=== PATIENT | male | born 1945 | race Caucasian/White ===

== ENCOUNTER → 2017-03-24 | Outpatient (CLI) | payer OTHER ==
[~2017-03-24] MED LIST: ASPI-515 PO; ASPI-621 PO; ATOR10TA9 PO; CEPH-368 PO; LISI-167 PO; METO50TA82 PO
[2017-03-24 10:00] LABS: ASPARTATE AMINO TRANSFERASE 15 U/L (15-37); BLOOD UREA NITROGEN 15 mg/dL (7-18)
== END | disposition home or self-care (01) ==
LOC: MERGE 03-23 09:30 → STAR 09:02
PROVIDERS: ATTEND Surgery
DX: Z01.810 Encounter for preprocedural cardiovascular examination (principal)
CPT/HCPCS: 36415; 80053; 93005

== ENCOUNTER 2017-04-03 05:44 | Day surgery (SDC) | payer OTHER ==
[~2017-04-03] VITALS: Ht 195.6 cm; Wt 114.0 kg
[2017-04-03] MEDS ORDERED: LACTATED RINGERS 1,000 ML IV SCH (06:14)
[2017-04-03 06:17] VITALS: BP 131/84
[2017-04-03] MEDS ORDERED: BUPIVACAINE/PF 0.25% ONE (07:10)
[2017-04-03] MEDS ORDERED: BUPIVACAINE/PF 0.5% ONE (07:10)
[2017-04-03] MEDS ORDERED: BUPIVACAINE/PF-EPI 0.25% 1:200K ONE (07:13)
[2017-04-03] MEDS ORDERED: KETAMINE 10 MG/ML, 20ML ONE ×2 (07:21→07:30)
[2017-04-03] MEDS ORDERED: FENTANYL PF 250 MCG/5ML ONE (07:21)
[2017-04-03] MEDS ORDERED: PROPOFOL 10 MG/ML, 20ML ONE (07:30)
[2017-04-03] MEDS ORDERED: METOCLOPRAMIDE 5 MG/ML, 2ML ONE (07:30)
[2017-04-03] MEDS ORDERED: ONDANSETRON 2MG/ML, 2ML ONE (07:30)
[2017-04-03] MEDS ORDERED: CEFAZOLIN 1,000 MG ONE (07:30)
[2017-04-03] MEDS ORDERED: DEXAMETHASONE 4 MG/ML, 1ML ONE (07:30)
[2017-04-03] MEDS ORDERED: ROCURONIUM 10 MG/ML ONE (07:30)
[2017-04-03] MEDS ORDERED: hydrALAzine 20 MG/ML, 1ML IV PRN (08:30)
[2017-04-03] MEDS ORDERED: MIDAZOLAM 1 MG/ML, 2ML IV PRN (08:30)
[2017-04-03] MEDS ORDERED: ONDANSETRON 2MG/ML, 2ML IVPush PRN (08:30)
[2017-04-03] MEDS ORDERED: LABETALOL 5MG/ML, 20ML IV PRN (08:30)
[2017-04-03] MEDS ORDERED: HYDROmorphone 1 MG/ML, 1ML IV PRN (08:30)
[2017-04-03] MEDS ORDERED: OXYcodone 5 MG/5 ML ORAL.SOL UDC PO PRN (08:30)
[2017-04-03] MEDS ORDERED: ACETAMINOPHEN 325 MG TABLET ONE (09:18)
[2017-04-03] MEDS ORDERED: ACETAMINOPHEN 650 MG/20.3 ML UDC ONE (09:18)
[2017-04-03] MEDS ORDERED: OXYcodone 5 MG/5 ML ORAL.SOL UDC ONE (09:18)
[2017-04-03] MEDS ORDERED: ACETAMINOPHEN 325 MG TABLET PO PRN (09:30)
[2017-04-03] MEDS: FENTANYL PF 100 MCG/2ML IV PRN ×2 (09:35→09:45)
[2017-04-03] MEDS ORDERED: FENTANYL PF 100 MCG/2ML ONE (09:35)
== END 2017-04-03 12:35 | disposition home or self-care (01) ==
LOC: OUT 05:44 → MERGE 07:30 → OUT 12:35
PROVIDERS: ATTEND Surgery
DX: K40.90 Unilateral inguinal hernia, without obstruction or gangrene, not specified as recurrent (principal); K42.9 Umbilical hernia without obstruction or gangrene; D17.6 Benign lipomatous neoplasm of spermatic cord; Z95.810 Presence of automatic (implantable) cardiac defibrillator; I42.9 Cardiomyopathy, unspecified; I34.0 Nonrheumatic mitral (valve) insufficiency; E78.5 Hyperlipidemia, unspecified; G62.9 Polyneuropathy, unspecified; Z85.71 Personal history of Hodgkin lymphoma; Z82.49 Family history of ischemic heart disease and other diseases of the circulatory system; Z98.890 Other specified postprocedural states
CPT/HCPCS: 49585; 49650; C1727; C1781; J0690; J1100; J2405; J2704; J2765; J3010; J3490; J7120

== ENCOUNTER 2017-06-26 10:45 | Day surgery (SDC) | payer OTHER ==
[~2017-06-26] VITALS: Ht 195.6 cm; Wt 111.4 kg
[~2017-06-26 10:45] MED LIST changes: +PROPOFOL 10 MG/ML, 20ML ONE
[2017-06-26] MEDS ORDERED: SODIUM CHLORIDE 0.9% 1,000 ML IV ONE (11:00)
[2017-06-26 11:06] VITALS: BP 135/75
[2017-06-26] MEDS ORDERED: SULF-169 PO (11:18)
[2017-06-26] MEDS ORDERED: SILD25TA PO (11:18)
[2017-06-26] MEDS ORDERED: MIDAZOLAM 1 MG/ML, 5ML ONE (13:15)
[2017-06-26] MEDS ORDERED: FENTANYL PF 100 MCG/2ML ONE (13:15)
== END 2017-06-26 16:31 | disposition home or self-care (01) ==
LOC: CACL 10:45
PROVIDERS: ATTEND Internal Medicine Cardiovascular Disease
DX: I34.8 Other nonrheumatic mitral valve disorders (principal); I34.0 Nonrheumatic mitral (valve) insufficiency; I36.1 Nonrheumatic tricuspid (valve) insufficiency; I48.91 Unspecified atrial fibrillation; E78.5 Hyperlipidemia, unspecified; Z95.810 Presence of automatic (implantable) cardiac defibrillator
CPT/HCPCS: 93312; 93325; J2704; 93321; J2250; J3010

== ENCOUNTER 2018-02-23 07:13 | Day surgery (SDC) | payer OTHER ==
[2018-02-21 10:26] VITALS: BP 147/90
[2018-02-21 11:00] LABS: BASOPHILS # (AUTO) 0.04 x10^3/uL (0-0.1); BASOPHILS % (AUTO) 1 % (0-1); EOSINOPHILS # (AUTO) 0.38 x10^3/uL (0-0.4); EOSINOPHILS % (AUTO) 5 % (1-7); LYMPHOCYTES # (AUTO) 1.73 x10^3/uL (1-3.4); LYMPHOCYTES % (AUTO) 24 % (22-44); MD NO; MEAN CORPUSCULAR HEMOGLOBIN 32.5 pg (27.5-34.5); MEAN CORPUSCULAR HGB CONC 33.8 g/dL (33.2-36.2); MEAN CORPUSCULAR VOLUME 96.2 fL (81-97); MEAN PLATELET VOLUME 7.8 fL (7.4-10.4); MONOCYTES # (AUTO) 0.61 x10^3/uL (0.2-0.8); MONOCYTES % (AUTO) 9 % (2-9); NEUTROPHILS # (AUTO) 4.42 x10^3/uL (1.8-6.8); NEUTROPHILS % (AUTO) 62 % (42-75); PLATELET COUNT 137 x10^3/uL (130-400); RED BLOOD COUNT 4.69 x10^6/uL (4.38-5.82); RED CELL DISTRIBUTION WIDTH 15.4 % (9.4-14.8)
[2018-02-21 11:06] LABS: ANION GAP 7 mmol/L (5-15); CALCIUM 8.5 mg/dL (8.5-10.1); CHLORIDE 111 mmol/L (98-107)
[2018-02-21 11:07] LABS: CREATININE 0.95 mg/dL (0.7-1.3)
[~2018-02-23] VITALS: Ht 195.6 cm; Wt 111.3 kg
[~2018-02-23 07:13] MED LIST changes: +IBUP-1223 PO; -PROPOFOL 10 MG/ML, 20ML ONE; +SILD100T PO; +SILD25TA PO; +SULF-169 PO; +VARI50KI IM
[2018-02-23] MEDS ORDERED: SODIUM CHLORIDE 0.9% 1,000 ML IV ONE (07:24)
[2018-02-23] MEDS ORDERED: MIDAZOLAM 1 MG/ML, 5ML ONE (08:55)
[2018-02-23] MEDS ORDERED: TICAGRELOR 90 MG TABLET ONE (08:55)
[2018-02-23] MEDS ORDERED: VERAPAMIL 2.5 MG/ML, 2ML ONE (08:55)
[2018-02-23] MEDS ORDERED: FENTANYL PF 100 MCG/2ML ONE (08:55)
[2018-02-23] MEDS ORDERED: HEPARIN 1,000 UNITS/ML, 10ML ONE (08:56)
[2018-02-23] MEDS ORDERED: LIDOCAINE 2%, 2ML ONE (08:56)
[2018-02-23] MEDS ORDERED: BIVALIRUDIN 250 MG ONE (08:56)
[2018-02-23] MEDS ORDERED: SODIUM CHLORIDE 0.9% 1,000 ML IV SCH (10:36)
== END 2018-02-23 12:30 | disposition home or self-care (01) ==
LOC: CACL 07:13
PROVIDERS: ATTEND Internal Medicine Cardiovascular Disease
DX: I25.10 Atherosclerotic heart disease of native coronary artery without angina pectoris (principal); I47.2 Ventricular tachycardia; I34.0 Nonrheumatic mitral (valve) insufficiency; I10 Essential (primary) hypertension
CPT/HCPCS: 36415; 80048; 85025; 93458; 93571; 99156; C1769; C1894; J1644; J2250; J3010; J3490; Q9967; J0583

== ENCOUNTER → 2018-04-05 | Outpatient (CLI) | payer OTHER | END | disposition home or self-care (01) | LOC: STAR 09:26 | PROVIDERS: ATTEND Internal Medicine | DX: Z01.818 Encounter for other preprocedural examination (principal); Z12.11 Encounter for screening for malignant neoplasm of colon; Z12.12 Encounter for screening for malignant neoplasm of rectum | CPT/HCPCS: 93005 ==

== ENCOUNTER 2018-04-23 11:01 | Day surgery (SDC) | payer OTHER ==
[~2018-04-23] VITALS: Ht 193 cm; Wt 108.0 kg
[2018-04-23] MEDS ORDERED: LACTATED RINGERS 1,000 ML IV SCH (11:22)
[2018-04-23 11:56] VITALS: BP 131/92
[2018-04-23] MEDS ORDERED: PROPOFOL 10 MG/ML, 20ML ONE (12:58)
[2018-04-23] MEDS ORDERED: ACETAMINOPHEN 325 MG TABLET PO PRN (14:00)
[2018-04-23] MEDS ORDERED: PROMETHAZINE 25 MG/ML, 1ML IV PRN (14:00)
[2018-04-23] MEDS ORDERED: PROMETHAZINE 12.5 MG SUPP PR PRN (14:00)
[2018-04-23] MEDS ORDERED: FENTANYL PF 100 MCG/2ML IV PRN (14:00)
[2018-04-23] MEDS ORDERED: MORPHINE SULFATE 4 MG/ML, 1ML IVPush PRN (14:00)
[2018-04-23] MEDS ORDERED: MEPERIDINE/PF 25MG/0.5ML IVPush PRN (14:00)
[2018-04-23] MEDS ORDERED: ALBUTEROL SULFATE 2.5 MG/3 ML NPPB PRN (14:00)
[2018-04-23] MEDS ORDERED: OXYcodone 5 MG/5 ML ORAL.SOL UDC PO PRN (14:00)
[2018-04-23] MEDS ORDERED: hydrALAzine 20 MG/ML, 1ML IV PRN (14:00)
[2018-04-23] MEDS ORDERED: LABETALOL 5MG/ML, 20ML IV PRN (14:00)
[2018-04-23] MEDS ORDERED: MIDAZOLAM 1 MG/ML, 2ML IV PRN (14:00)
[2018-04-23] MEDS ORDERED: ONDANSETRON ODT 8 MG PO PRN (14:00)
== END 2018-04-23 15:00 ==
LOC: OUT 11:01
PROVIDERS: ATTEND Internal Medicine
DX: D12.2 Benign neoplasm of ascending colon (principal); D12.3 Benign neoplasm of transverse colon; K62.1 Rectal polyp; K57.30 Diverticulosis of large intestine without perforation or abscess without bleeding; K64.0 First degree hemorrhoids; E78.5 Hyperlipidemia, unspecified; Z95.0 Presence of cardiac pacemaker; Z86.718 Personal history of other venous thrombosis and embolism; Z85.72 Personal history of non-Hodgkin lymphomas
CPT/HCPCS: 45385; 88305; J2704; J7120

== ENCOUNTER 2018-05-08 04:05 | Inpatient (IN) | payer OTHER ==
[2018-05-07 14:23] LABS: MICROSCOPIC AUTO
[2018-05-07 14:24] LABS: BASOPHILS # (AUTO) 0.04 x10^3/uL (0-0.1); BASOPHILS % (AUTO) 1 % (0-1); EOSINOPHILS # (AUTO) 0.25 x10^3/uL (0-0.4); EOSINOPHILS % (AUTO) 3 % (1-7); LYMPHOCYTES # (AUTO) 2.26 x10^3/uL (1-3.4); LYMPHOCYTES % (AUTO) 31 % (22-44); MD NO; MEAN CORPUSCULAR HEMOGLOBIN 32.9 pg (27.5-34.5); MEAN CORPUSCULAR HGB CONC 33.9 g/dL (33.2-36.2); MEAN CORPUSCULAR VOLUME 96.9 fL (81-97); MEAN PLATELET VOLUME 7.7 fL (7.4-10.4); MONOCYTES # (AUTO) 0.72 x10^3/uL (0.2-0.8); MONOCYTES % (AUTO) 10 % (2-9); NEUTROPHILS # (AUTO) 4.05 x10^3/uL (1.8-6.8); NEUTROPHILS % (AUTO) 55 % (42-75); PLATELET COUNT 167 x10^3/uL (130-400); RED BLOOD COUNT 4.96 x10^6/uL (4.38-5.82); RED CELL DISTRIBUTION WIDTH 15.2 % (9.4-14.8)
[2018-05-07 14:29] LABS: INTERNATIONAL NORMALIZED RATIO 1.04 (0.93-1.1); PROTHROMBIN TIME 10.8 Seconds (9.6-11.5)
[2018-05-07 14:34] LABS: ALANINE AMINOTRANSFERASE 25 U/L (12-78); ALBUMIN 3.9 g/dL (3.4-5.0); ANION GAP 7 mmol/L (5-15); CALCIUM 9.1 mg/dL (8.5-10.1); CHLORIDE 106 mmol/L (98-107); CREATININE 1.08 mg/dL (0.7-1.3)
[2018-05-07 14:37] LABS: ALKALINE PHOSPHATASE 88 U/L (45-117); BILIRUBIN,TOTAL 0.8 mg/dL (0.2-1.0); TOTAL PROTEIN 7.3 g/dL (6.4-8.2)
[2018-05-07 14:42] LABS: HEMOGLOBIN A1C 5.7 % (4.2-6.3)
[~2018-05-08] VITALS: Ht 193 cm; Wt 113.1 kg
[2018-05-08] MEDS ORDERED: INSULIN LISPRO 100 UNITS/ML, PEN SQ-INSULIN SCH (04:30)
[2018-05-08] MEDS ORDERED: ALBUMIN HUMAN 5% 500 ML IV PRN (04:30)
[2018-05-08] MEDS ORDERED: CHLORHEXIDINE 15 ML BOTTLE MM SCH (04:30)
[2018-05-08 04:39] VITALS: BP_SYST 132; BP_SYST 135; BP_DIAS 81
[2018-05-08] MEDS: MUPIROCIN OINT 2%, 22GM TP SCH ×2 (05:19→21:00)
[2018-05-08] MEDS ORDERED: MIDAZOLAM 10MG/2 ML ONE (06:44)
[2018-05-08] MEDS ORDERED: FENTANYL PF 250 MCG/5ML ONE ×5 (06:44→10:47)
[2018-05-08] MEDS ORDERED: EPINEPHRINE 1 MG/ML, 1ML ONE ×2 (06:45→17:19)
[2018-05-08] MEDS ORDERED: CALCIUM CHLORIDE 10%, 10ML SYR ONE (06:45)
[2018-05-08] MEDS ORDERED: AMINOCAPROIC ACID 250 MG/ML, 20ML ONE ×2 (06:45)
[2018-05-08] MEDS ORDERED: PROPOFOL 10 MG/ML, 20ML ONE (06:45)
[2018-05-08] MEDS ORDERED: ROCURONIUM 10MG/ML,5ML ONE ×2 (06:45)
[2018-05-08] MEDS ORDERED: PHENYLEPHRINE 10 MG in SODIUM CHLORIDE 0.9% 249 ML IV PRN ×2 (07:30→10:49)
[2018-05-08] MEDS ORDERED: VANCOMYCIN 1,700 MG in SODIUM CHLORIDE 0.9% 250 ML IV PRN (07:30)
[2018-05-08] MEDS ORDERED: EPINEPHRINE 2 MG in SODIUM CHLORIDE 0.9% 248 ML IV SCH (07:30)
[2018-05-08] MEDS ORDERED: REGULAR INSULIN 62.5 UNITS in SODIUM CHLORIDE 0.9% 249.375 ML IV PRN (07:30)
[2018-05-08] MEDS ORDERED: POTASSIUM CHLORIDE 80 MEQ, SODIUM BICARBONATE 8.4% 10 MEQ, MAGNESIUM SULFATE 0.5 GM, LI... IV PRN (07:30)
[2018-05-08] MEDS ORDERED: DEXMEDETOMIDINE 200 MCG in SODIUM CHLORIDE 0.9% 48 ML IV SCH (07:30)
[2018-05-08] MEDS ORDERED: MANNITOL PMX 20% 500 ML IVPB PRN (07:30)
[2018-05-08] MEDS: DOCUSATE 100 MG CAPSULE PO SCH ×2 (09:00→21:15)
[2018-05-08] MEDS: SODIUM CHLORIDE FLUSH 10ML SYR IVF SCH ×3 (09:00→21:14)
[2018-05-08] MEDS ORDERED: SODIUM CHLORIDE 0.9% 1,000 ML IV PRN (10:49)
[2018-05-08] MEDS ORDERED: DOBUTAMINE 250 MG in SODIUM CHLORIDE 0.9% 230 ML IV PRN (10:49)
[2018-05-08] MEDS ORDERED: VASOPRESSIN 50 UNIT in SODIUM CHLORIDE 0.9% 247.5 ML IV PRN (10:49)
[2018-05-08] MEDS ORDERED: DEXMEDETOMIDINE 200 MCG in SODIUM CHLORIDE 0.9% 48 ML IV PRN (10:49)
[2018-05-08] MEDS ORDERED: NITROGLYCERIN/D5W PMX 250 ML IV PRN (10:49)
[2018-05-08] MEDS ORDERED: INSULIN REGULAR 100 UNITS/ML, 3ML VIAL IVPush PRN (11:00)
[2018-05-08] MEDS ORDERED: MIDAZOLAM 1 MG/ML, 5ML IVPush PRN (11:00)
[2018-05-08] MEDS ORDERED: ONDANSETRON 2MG/ML, 2ML IVPush PRN (11:00)
[2018-05-08] MEDS ORDERED: DEXTROSE 4 GM TAB.CHEW PO PRN (11:00)
[2018-05-08] MEDS ORDERED: PROCHLORPERAZINE 5 MG/ML, 2ML IVPush PRN (11:00)
[2018-05-08] MEDS ORDERED: EPINEPHRINE 2 MG in SODIUM CHLORIDE 0.9% 248 ML IV PRN (11:00)
[2018-05-08] MEDS ORDERED: GLUCAGON 1 MG IM PRN (11:00)
[2018-05-08] MEDS ORDERED: ACETAMINOPHEN 325 MG TABLET PO PRN (11:00)
[2018-05-08] MEDS ORDERED: ACETAMINOPHEN 650 MG SUPP PR PRN (11:00)
[2018-05-08] MEDS: KSCALE TO 4.5 IV SCH ×3 (11:00→23:00)
[2018-05-08] MEDS ORDERED: OXYcodone IR 5MG TABLET PO PRN (11:00)
[2018-05-08] MEDS ORDERED: BISACODYL 5 MG EC TABLET PO PRN (11:00)
[2018-05-08] MEDS ORDERED: SODIUM BICARB 8.4%, 50ML SYRINGE IV PRN (11:00)
[2018-05-08] MEDS: INSULIN LISPRO 100 UNITS/ML, PEN SQ-INSULIN SCH ×3 (11:00→21:00)
[2018-05-08] MEDS ORDERED: DEXTROSE 50%, 50ML SYRINGE IVPush PRN (11:00)
[2018-05-08] MEDS ORDERED: BISACODYL 10 MG SUPP PR PRN (11:00)
[2018-05-08] MEDS ORDERED: methylPREDNISolone SOD SUCC 125 MG/2 ML ONE (11:15)
[2018-05-08] MEDS ORDERED: SODIUM BICARBONATE 1 MEQ/ML, 50ML VIAL ONE (11:15)
[2018-05-08] MEDS ORDERED: LIDOCAINE 2% 100MG/5ML SYRINGE ONE (11:15)
[2018-05-08] MEDS ORDERED: ALBUMIN HUMAN 25% 50 ML ONE (11:15)
[2018-05-08] MEDS ORDERED: HEPARIN 1,000 UNITS/ML, 30ML ONE (11:16)
[2018-05-08 11:28] LABS: GLUCOSE BY BLOOD GAS ANALYZER 186 mg/dL (70-110); HEMOGLOBIN BY BLOOD GAS ANALYZ 13.6 g/dL (14.0-18.0); POTASSIUM BY BLOOD GAS ANALYZR 3.3 mmol/L (3.6-5.5)
[2018-05-08 11:30] LABS: FIO2 60 %
[2018-05-08] MEDS ORDERED: MAGNESIUM SULFATE 1 GM in SODIUM CHLORIDE 0.9% 50 ML IVPB SCH (12:00)
[2018-05-08] MEDS ORDERED: MORPHINE SULFATE 4 MG/ML, 1ML ONE ×2 (12:15→13:34)
[2018-05-08] MEDS: morphine SULFATE 10 MG/ML, 1ML IVPush PRN ×2 (12:18→13:35)
[2018-05-08] MEDS ORDERED: POTASSIUM CHLORIDE 30 MEQ in SODIUM CHLORIDE 0.9% 100 ML IV ONE (12:30)
[2018-05-08] MEDS: LACTATED RINGERS 1,000 ML IV PRN ×3 (17:06→23:30)
[2018-05-08] MEDS: HYDROcodone/APAP 5/325 TABLET PO PRN ×2 (18:11→22:27)
[2018-05-08] MEDS: VANCOMYCIN 1,600 MG in SODIUM CHLORIDE 0.9% 250 ML IVPB SCH (20:37)
[2018-05-08] MEDS: REGULAR INSULIN 62.5 UNITS in SODIUM CHLORIDE 0.9% 249.375 ML IV PRN (21:07)
[2018-05-08] MEDS: MUPIROCIN OINT 2%, 22GM NAS SCH (21:16)
[2018-05-09 04:44] LABS: MEAN CORPUSCULAR HEMOGLOBIN 32.7 pg (27.5-34.5); MEAN CORPUSCULAR HGB CONC 33.6 g/dL (33.2-36.2); MEAN CORPUSCULAR VOLUME 97.5 fL (81-97); MEAN PLATELET VOLUME 7.9 fL (7.4-10.4); PLATELET COUNT 128 x10^3/uL (130-400); RED BLOOD COUNT 3.79 x10^6/uL (4.38-5.82); RED CELL DISTRIBUTION WIDTH 15.7 % (9.4-14.8)
[2018-05-09 04:56] LABS: CALCIUM 8.1 mg/dL (8.5-10.1); CHLORIDE 109 mmol/L (98-107)
[2018-05-09 04:59] LABS: ALBUMIN 3.2 g/dL (3.4-5.0); ANION GAP 10 mmol/L (5-15); CREATININE 0.82 mg/dL (0.7-1.3)
[2018-05-09] MEDS: KSCALE TO 4.5 IV SCH (05:00)
[2018-05-09 05:01] LABS: BASOPHILS # (AUTO) 0.04 x10^3/uL (0-0.1); BASOPHILS % (AUTO) 0 % (0-1); EOSINOPHILS % (AUTO) 0 % (1-7); INTERNATIONAL NORMALIZED RATIO 1.07 (0.93-1.1); LYMPHOCYTES # (AUTO) 0.45 x10^3/uL (1-3.4); LYMPHOCYTES % (AUTO) 2 % (22-44); MD SCAN; MONOCYTES # (AUTO) 1.83 x10^3/uL (0.2-0.8); MONOCYTES % (AUTO) 9 % (2-9); NEUTROPHILS # (AUTO) 18.77 x10^3/uL (1.8-6.8); NEUTROPHILS % (AUTO) 89 % (42-75); PROTHROMBIN TIME 11.1 Seconds (9.6-11.5)
[2018-05-09] MEDS: INSULIN LISPRO 100 UNITS/ML, PEN SQ-INSULIN SCH ×4 (07:00→21:00)
[2018-05-09] MEDS: SODIUM CHLORIDE FLUSH 10ML SYR IVF SCH ×4 (07:51→20:23)
[2018-05-09] MEDS: METOPROLOL TARTRATE 25 MG TABLET PO/NG SCH ×2 (07:52→20:13)
[2018-05-09] MEDS: VANCOMYCIN 1,600 MG in SODIUM CHLORIDE 0.9% 250 ML IVPB SCH (08:32)
[2018-05-09] MEDS: MUPIROCIN OINT 2%, 22GM TP SCH ×2 (08:37→20:24)
[2018-05-09] MEDS: HYDROcodone/APAP 5/325 TABLET PO PRN ×3 (08:46→20:12)
[2018-05-09] MEDS: DOCUSATE 100 MG CAPSULE PO SCH ×2 (08:46→20:13)
[2018-05-09] MEDS: ASPIRIN 81 MG TABLET EC PO SCH (08:46)
[2018-05-09] MEDS: MUPIROCIN OINT 2%, 22GM NAS SCH ×2 (08:47→20:23)
[2018-05-09] MEDS: REGULAR INSULIN 62.5 UNITS in SODIUM CHLORIDE 0.9% 249.375 ML IV PRN (08:54)
[2018-05-09] MEDS: WARFARIN BIOPROSTHETIC VALVE PROTOCOL 2-3 XX SCH (09:00)
[2018-05-09] MEDS ORDERED: FUROSEMIDE 20 MG/2 ML IV ONE (09:30)
[2018-05-09] MEDS ORDERED: LACTATED RINGERS 500 ML IVBOLUS ONE (11:00)
[2018-05-09] MEDS: CHLORHEXIDINE 15 ML BOTTLE MM SCH ×2 (11:03→22:51)
[2018-05-09] MEDS ORDERED: ALBUMIN HUMAN 5% 500 ML IV ONE (12:00)
[2018-05-09] MEDS ORDERED: ALBUTEROL/IPRATROPIUM 2.5MG/0.5MG, 3 ML ONE (12:44)
[2018-05-09] MEDS: ALBUTEROL/IPRATROPIUM 2.5MG/0.5MG, 3 ML NPPB SCH ×2 (12:58→20:00)
[2018-05-09] MEDS ORDERED: ALBUTEROL SULFATE 2.5 MG/3 ML NPPB PRN (13:00)
[2018-05-09] MEDS ORDERED: FLUTICASONE/VILANTEROL 200-25MCG/INH INH ONE (13:27)
[2018-05-09] MEDS: MAGNESIUM SULFATE 1 GM in DEXTROSE 5% 100 ML IVPB SCH (15:07)
[2018-05-09] MEDS ORDERED: WARFARIN 5 MG TABLET PO-COUM ONE (18:00)
[2018-05-10] MEDS: HYDROcodone/APAP 5/325 TABLET PO PRN ×3 (00:50→21:34)
[2018-05-10 05:25] LABS: ANION GAP 6 mmol/L (5-15); CALCIUM 8.3 mg/dL (8.5-10.1); CHLORIDE 104 mmol/L (98-107); CREATININE 0.69 mg/dL (0.7-1.3)
[2018-05-10 05:31] LABS: MEAN CORPUSCULAR HEMOGLOBIN 32.9 pg (27.5-34.5); MEAN CORPUSCULAR HGB CONC 33.6 g/dL (33.2-36.2); MEAN CORPUSCULAR VOLUME 97.7 fL (81-97); RED BLOOD COUNT 3.83 x10^6/uL (4.38-5.82); RED CELL DISTRIBUTION WIDTH 15.5 % (9.4-14.8)
[2018-05-10 05:45] LABS: INTERNATIONAL NORMALIZED RATIO 1.1 (0.93-1.1); PROTHROMBIN TIME 11.4 Seconds (9.6-11.5)
[2018-05-10 05:54] LABS: BASOPHILS # (AUTO) 0.02 x10^3/uL (0-0.1); BASOPHILS % (AUTO) 0 % (0-1); EOSINOPHILS # (AUTO) 0.06 x10^3/uL (0-0.4); EOSINOPHILS % (AUTO) 0 % (1-7); LYMPHOCYTES # (AUTO) 1.32 x10^3/uL (1-3.4); LYMPHOCYTES % (AUTO) 9 % (22-44); MD SCAN; MEAN PLATELET VOLUME 8.1 fL (7.4-10.4); MONOCYTES # (AUTO) 1.02 x10^3/uL (0.2-0.8); MONOCYTES % (AUTO) 7 % (2-9); NEUTROPHILS # (AUTO) 12.86 x10^3/uL (1.8-6.8); NEUTROPHILS % (AUTO) 84 % (42-75); PLATELET COUNT 89 x10^3/uL (130-400)
[2018-05-10] MEDS: ALBUTEROL/IPRATROPIUM 2.5MG/0.5MG, 3 ML NPPB SCH ×2 (06:52→10:57)
[2018-05-10] MEDS: INSULIN LISPRO 100 UNITS/ML, PEN SQ-INSULIN SCH ×4 (07:00→20:00)
[2018-05-10] MEDS ORDERED: MAGNESIUM HYDROXIDE 8%, 30ML UDC PO PRN (08:00)
[2018-05-10] MEDS: POTASSIUM CHLORIDE 20 MEQ TAB.ER.PRT PO SCH (08:50)
[2018-05-10] MEDS: DOCUSATE 100 MG CAPSULE PO SCH ×2 (08:50→19:50)
[2018-05-10] MEDS: ASPIRIN 81 MG TABLET EC PO SCH (08:50)
[2018-05-10] MEDS: FUROSEMIDE 40 MG/4 ML IV SCH (08:50)
[2018-05-10] MEDS: FLUTICASONE/VILANTEROL 200-25MCG/INH INH SCH (08:52)
[2018-05-10] MEDS: SODIUM CHLORIDE FLUSH 10ML SYR IVF SCH ×5 (08:52→19:56)
[2018-05-10] MEDS: POTASSIUM CHLORIDE 10 MEQ TABLET.ER PO SCH (08:57)
[2018-05-10] MEDS: MUPIROCIN OINT 2%, 22GM NAS SCH ×2 (08:59→19:51)
[2018-05-10] MEDS: WARFARIN BIOPROSTHETIC VALVE PROTOCOL 2-3 XX SCH (09:00)
[2018-05-10 10:32] VITALS: BP 133/74
[2018-05-10] MEDS: CHLORHEXIDINE 15 ML BOTTLE MM SCH ×2 (11:00→21:12)
[2018-05-10] MEDS: MAGNESIUM SULFATE 1 GM in DEXTROSE 5% 100 ML IVPB SCH (15:39)
[2018-05-10] MEDS ORDERED: WARFARIN 5 MG TABLET PO-COUM ONE (18:00)
[2018-05-10 19:34] VITALS: BP 135/75
[2018-05-10] MEDS: ENOXAPARIN 40 MG/0.4 ML SQ SCH (19:50)
[2018-05-10 20:42] VITALS: BP 119/62
[2018-05-11 01:05] VITALS: BP 140/65
[2018-05-11 05:02] LABS: CALCIUM 8.3 mg/dL (8.5-10.1); CREATININE 0.63 mg/dL (0.7-1.3)
[2018-05-11 05:05] LABS: INTERNATIONAL NORMALIZED RATIO 1.09 (0.93-1.1); PROTHROMBIN TIME 11.3 Seconds (9.6-11.5)
[2018-05-11 05:09] LABS: MEAN CORPUSCULAR HEMOGLOBIN 32.9 pg (27.5-34.5); MEAN CORPUSCULAR HGB CONC 33.8 g/dL (33.2-36.2); MEAN CORPUSCULAR VOLUME 97.2 fL (81-97); MEAN PLATELET VOLUME 8.3 fL (7.4-10.4); PLATELET COUNT 88 x10^3/uL (130-400); RED BLOOD COUNT 3.85 x10^6/uL (4.38-5.82); RED CELL DISTRIBUTION WIDTH 15.5 % (9.4-14.8)
[2018-05-11 05:10] LABS: ANION GAP 6 mmol/L (5-15); CHLORIDE 106 mmol/L (98-107)
[2018-05-11 05:51] LABS: BASOPHILS # (AUTO) 0.03 x10^3/uL (0-0.1); BASOPHILS % (AUTO) 0 % (0-1); EOSINOPHILS # (AUTO) 0.22 x10^3/uL (0-0.4); EOSINOPHILS % (AUTO) 2 % (1-7); LYMPHOCYTES # (AUTO) 1.27 x10^3/uL (1-3.4); LYMPHOCYTES % (AUTO) 12 % (22-44); MD SCAN; MONOCYTES # (AUTO) 0.82 x10^3/uL (0.2-0.8); MONOCYTES % (AUTO) 8 % (2-9); NEUTROPHILS % (AUTO) 77 % (42-75)
[2018-05-11] MEDS: INSULIN LISPRO 100 UNITS/ML, PEN SQ-INSULIN SCH ×2 (07:00→11:00)
[2018-05-11 07:08] VITALS: BP 127/67
[2018-05-11] MEDS: MUPIROCIN OINT 2%, 22GM NAS SCH ×2 (08:34→21:03)
[2018-05-11] MEDS: FLUTICASONE/VILANTEROL 200-25MCG/INH INH SCH (08:34)
[2018-05-11] MEDS: SODIUM CHLORIDE FLUSH 10ML SYR IVF SCH ×5 (08:35→21:03)
[2018-05-11] MEDS: ASPIRIN 81 MG TABLET EC PO SCH (08:36)
[2018-05-11] MEDS: DOCUSATE 100 MG CAPSULE PO SCH ×2 (08:36→21:04)
[2018-05-11] MEDS: FUROSEMIDE 40 MG/4 ML IV SCH (08:36)
[2018-05-11] MEDS: POTASSIUM CHLORIDE 20 MEQ TAB.ER.PRT PO SCH (08:36)
[2018-05-11] MEDS: POTASSIUM CHLORIDE 10 MEQ TABLET.ER PO SCH (08:36)
[2018-05-11] MEDS: WARFARIN BIOPROSTHETIC VALVE PROTOCOL 2-3 XX SCH (08:38)
[2018-05-11] MEDS: GABAPENTIN 400 MG CAPSULE PO SCH ×3 (09:45→21:04)
[2018-05-11 14:09] VITALS: BP 148/61
[2018-05-11] MEDS ORDERED: WARFARIN 7.5 MG TABLET PO-COUM ONE (18:00)
[2018-05-11 19:38] VITALS: BP 135/84
[2018-05-11] MEDS: ENOXAPARIN 40 MG/0.4 ML SQ SCH (21:03)
[2018-05-12 02:10] VITALS: BP 148/82
[2018-05-12 04:53] LABS: BASOPHILS # (AUTO) 0.08 x10^3/uL (0-0.1); BASOPHILS % (AUTO) 1 % (0-1); EOSINOPHILS # (AUTO) 0.52 x10^3/uL (0-0.4); EOSINOPHILS % (AUTO) 5 % (1-7); LYMPHOCYTES # (AUTO) 1.32 x10^3/uL (1-3.4); LYMPHOCYTES % (AUTO) 13 % (22-44); MD NO; MEAN CORPUSCULAR HGB CONC 33.7 g/dL (33.2-36.2); MEAN CORPUSCULAR VOLUME 97.9 fL (81-97); MEAN PLATELET VOLUME 8.5 fL (7.4-10.4); MONOCYTES % (AUTO) 7 % (2-9); NEUTROPHILS # (AUTO) 7.42 x10^3/uL (1.8-6.8); NEUTROPHILS % (AUTO) 74 % (42-75); PLATELET COUNT 104 x10^3/uL (130-400); RED BLOOD COUNT 3.92 x10^6/uL (4.38-5.82); RED CELL DISTRIBUTION WIDTH 15.3 % (9.4-14.8)
[2018-05-12 05:01] LABS: ANION GAP 9 mmol/L (5-15); CALCIUM 8.4 mg/dL (8.5-10.1); CHLORIDE 105 mmol/L (98-107); CREATININE 0.66 mg/dL (0.7-1.3)
[2018-05-12 05:17] LABS: INTERNATIONAL NORMALIZED RATIO 1.1 (0.93-1.1); PROTHROMBIN TIME 11.4 Seconds (9.6-11.5)
[2018-05-12 06:55] VITALS: BP 137/78
[2018-05-12] MEDS: MUPIROCIN OINT 2%, 22GM NAS SCH ×2 (08:52→20:17)
[2018-05-12] MEDS: GABAPENTIN 400 MG CAPSULE PO SCH ×3 (08:53→20:16)
[2018-05-12] MEDS: DOCUSATE 100 MG CAPSULE PO SCH ×2 (08:53→20:16)
[2018-05-12] MEDS: FUROSEMIDE 40 MG/4 ML IV SCH (08:53)
[2018-05-12] MEDS: ASPIRIN 81 MG TABLET EC PO SCH (08:53)
[2018-05-12] MEDS: SODIUM CHLORIDE FLUSH 10ML SYR IVF SCH ×5 (08:53→20:26)
[2018-05-12] MEDS: POTASSIUM CHLORIDE 20 MEQ TAB.ER.PRT PO SCH (08:53)
[2018-05-12] MEDS: WARFARIN BIOPROSTHETIC VALVE PROTOCOL 2-3 XX SCH (09:00)
[2018-05-12] MEDS: FLUTICASONE/VILANTEROL 200-25MCG/INH INH SCH (09:04)
[2018-05-12 13:17] VITALS: BP 124/74
[2018-05-12] MEDS ORDERED: WARFARIN 10 MG TABLET PO-COUM ONE (18:00)
[2018-05-12 20:14] VITALS: BP 133/61
[2018-05-12] MEDS: ENOXAPARIN 40 MG/0.4 ML SQ SCH (20:17)
[2018-05-13 02:52] VITALS: BP 128/70
[2018-05-13 05:31] LABS: BASOPHILS # (AUTO) 0.03 x10^3/uL (0-0.1); BASOPHILS % (AUTO) 0 % (0-1); EOSINOPHILS # (AUTO) 0.65 x10^3/uL (0-0.4); EOSINOPHILS % (AUTO) 6 % (1-7); LYMPHOCYTES # (AUTO) 1.44 x10^3/uL (1-3.4); LYMPHOCYTES % (AUTO) 14 % (22-44); MD NO; MEAN CORPUSCULAR HEMOGLOBIN 32.8 pg (27.5-34.5); MEAN CORPUSCULAR VOLUME 96.4 fL (81-97); MEAN PLATELET VOLUME 8.3 fL (7.4-10.4); MONOCYTES # (AUTO) 1.06 x10^3/uL (0.2-0.8); MONOCYTES % (AUTO) 11 % (2-9); NEUTROPHILS # (AUTO) 6.97 x10^3/uL (1.8-6.8); NEUTROPHILS % (AUTO) 69 % (42-75); PLATELET COUNT 130 x10^3/uL (130-400); RED BLOOD COUNT 3.94 x10^6/uL (4.38-5.82); RED CELL DISTRIBUTION WIDTH 15.1 % (9.4-14.8)
[2018-05-13 05:39] LABS: CHLORIDE 103 mmol/L (98-107)
[2018-05-13 05:54] LABS: ANION GAP 8 mmol/L (5-15); CALCIUM 8.9 mg/dL (8.5-10.1)
[2018-05-13 05:57] LABS: INTERNATIONAL NORMALIZED RATIO 1.16 (0.93-1.1)
[2018-05-13 06:40] VITALS: BP 107/70
[2018-05-13] MEDS ORDERED: WARF5TAB PO (08:22)
[2018-05-13] MEDS ORDERED: ALPR0.254 PO (08:22)
[2018-05-13] MEDS ORDERED: POTA20TA6 PO (08:22)
[2018-05-13] MEDS ORDERED: ASPI-621 PO (08:22)
[2018-05-13] MEDS ORDERED: HYDR-3240 PO (08:22)
[2018-05-13] MEDS ORDERED: FURO40TA6 PO (08:22)
[2018-05-13] MEDS: DOCUSATE 100 MG CAPSULE PO SCH (08:53)
[2018-05-13] MEDS: FLUTICASONE/VILANTEROL 200-25MCG/INH INH SCH (08:53)
[2018-05-13] MEDS: SODIUM CHLORIDE FLUSH 10ML SYR IVF SCH ×2 (08:53→08:55)
[2018-05-13] MEDS: POTASSIUM CHLORIDE 20 MEQ TAB.ER.PRT PO SCH (08:55)
[2018-05-13] MEDS: GABAPENTIN 400 MG CAPSULE PO SCH (08:55)
[2018-05-13] MEDS: ASPIRIN 81 MG TABLET EC PO SCH (08:55)
[2018-05-13] MEDS: MUPIROCIN OINT 2%, 22GM NAS SCH (08:55)
[2018-05-13] MEDS: FUROSEMIDE 40 MG/4 ML IV SCH (08:56)
[2018-05-13] MEDS ORDERED: WARFARIN 2.5 MG TABLET PO-COUM ONE (18:00)
[2018-05-13] MEDS ORDERED: WARFARIN 10 MG TABLET PO-COUM ONE (18:00)
== END 2018-05-13 12:40 | disposition home or self-care (01) | DRG 219 ==
LOC: 5SO 04:05 → CSU 08:13 → 5SO 05-10 10:11
PROVIDERS: ADMIT Thoracic Surgery (Cardiothoracic Vascular Surgery); ATTEND Thoracic Surgery (Cardiothoracic Vascular Surgery)
PROC: 5A1221Z Performance of Cardiac Output, Continuous (ICD-10-PCS; 2018-05-08)
PROC: B24BZZ4 Ultrasonography of Heart with Aorta, Transesophageal (ICD-10-PCS; 2018-05-08)
PROC: 02UG08Z Supplement Mitral Valve with Zooplastic Tissue, Open Approach (ICD-10-PCS; principal; 2018-05-08 07:30)
DX: I34.0 Nonrheumatic mitral (valve) insufficiency (principal); J96.00 Acute respiratory failure, unspecified whether with hypoxia or hypercapnia; I42.9 Cardiomyopathy, unspecified; J93.82 Other air leak; J45.901 Unspecified asthma with (acute) exacerbation; I47.2 Ventricular tachycardia; I10 Essential (primary) hypertension; I34.1 Nonrheumatic mitral (valve) prolapse; I25.10 Atherosclerotic heart disease of native coronary artery without angina pectoris; E78.5 Hyperlipidemia, unspecified; M54.10 Radiculopathy, site unspecified; N40.0 Benign prostatic hyperplasia without lower urinary tract symptoms; Z95.2 Presence of prosthetic heart valve; Z95.810 Presence of automatic (implantable) cardiac defibrillator; Z86.79 Personal history of other diseases of the circulatory system
CPT/HCPCS: 36415; 36600; 71045; 71046; 80048; 80053; 81001; 82040; 82330; 82800; 82803; 82810; 82947; 82962; 83036; 83735; 84132; 84295; 85014; 85018; 85025; 85049; 85347; 85610; 85730; 86850; 86900; 86923; 87081; 88305; 93005; 93312; 93321; 93325; 93880; 94002; 94640; J0171; J1644; J1650; J1815; J1940; J2250; J2704; J3010; J3370; J3475; J3480; J3490; J7120; J7613; J7620; P9045; P9047; C1751; C1760; J2270; J2370; J2930; J7050

== ENCOUNTER 2018-08-30 05:21 | Inpatient (IN) | payer OTHER ==
[~2018-08-30] VITALS: Ht 193 cm; Wt 105.7 kg
[~2018-08-30 05:21] MED LIST changes: +ALPR0.254 PO; +FURO40TA6 PO; +HYDR-3240 PO; +POTA20TA6 PO; +WARF5TAB PO
[2018-08-30] MEDS ORDERED: ASPIRIN 81 MG TABLET CHEW PO ONE (06:00)
[2018-08-30 06:13] LABS: BASOPHILS # (AUTO) 0.06 x10^3/uL (0-0.1); BASOPHILS % (AUTO) 1 % (0-1); EOSINOPHILS # (AUTO) 0.49 x10^3/uL (0-0.4); EOSINOPHILS % (AUTO) 7 % (1-7); LYMPHOCYTES # (AUTO) 1.76 x10^3/uL (1-3.4); LYMPHOCYTES % (AUTO) 25 % (22-44); MD NO; MEAN CORPUSCULAR HEMOGLOBIN 30.4 pg (27.5-34.5); MEAN CORPUSCULAR HGB CONC 33.2 g/dL (33.2-36.2); MEAN CORPUSCULAR VOLUME 91.7 fL (81-97); MEAN PLATELET VOLUME 8.1 fL (7.4-10.4); MONOCYTES # (AUTO) 0.68 x10^3/uL (0.2-0.8); MONOCYTES % (AUTO) 9 % (2-9); NEUTROPHILS # (AUTO) 4.21 x10^3/uL (1.8-6.8); NEUTROPHILS % (AUTO) 59 % (42-75); PLATELET COUNT 136 x10^3/uL (130-400); RED BLOOD COUNT 4.48 x10^6/uL (4.38-5.82); RED CELL DISTRIBUTION WIDTH 15.7 % (9.4-14.8)
[2018-08-30] MEDS ORDERED: ASPIRIN 81 MG TABLET CHEW ONE (06:15)
[2018-08-30 06:27] LABS: ALBUMIN 3.5 g/dL (3.4-5.0); ANION GAP 7 mmol/L (5-15); CALCIUM 8.6 mg/dL (8.5-10.1); CHLORIDE 109 mmol/L (98-107)
[2018-08-30 06:33] LABS: ALANINE AMINOTRANSFERASE 30 U/L (12-78); ALKALINE PHOSPHATASE 100 U/L (45-117); BILIRUBIN,TOTAL 0.6 mg/dL (0.2-1.0); TOTAL PROTEIN 6.3 g/dL (6.4-8.2)
[2018-08-30 06:38] LABS: TROPONIN I 0.434 ng/mL (0.000-0.045)
[2018-08-30] MEDS ORDERED: ATOR40TA78 PO (07:24)
[2018-08-30] MEDS ORDERED: albuterol nebulizer IH (07:25)
[2018-08-30] MEDS ORDERED: METO25TA35 PO (07:25)
[2018-08-30] MEDS ORDERED: FUROSEMIDE 40 MG/4 ML IV ONE (07:30)
[2018-08-30] MEDS ORDERED: SODIUM CHLORIDE FLUSH 10ML SYR IVF PRN (07:30)
[2018-08-30] MEDS ORDERED: FUROSEMIDE 40 MG/4 ML ONE (07:55)
[2018-08-30] MEDS ORDERED: POLYETHYLENE GLYCOL 17 GM PACKET PO PRN (08:30)
[2018-08-30] MEDS ORDERED: ENALAPRILAT 1.25 MG/ML, 2ML IVPush PRN (08:30)
[2018-08-30] MEDS ORDERED: hydrALAzine 20 MG/ML, 1ML IVPush PRN (08:30)
[2018-08-30] MEDS ORDERED: ACETAMINOPHEN 325 MG TABLET PO PRN (08:30)
[2018-08-30] MEDS ORDERED: DOCUSATE 100 MG CAPSULE PO PRN (08:30)
[2018-08-30] MEDS ORDERED: BISACODYL 10 MG SUPP PR PRN (08:30)
[2018-08-30] MEDS ORDERED: HEPARIN 5,000 UNITS/ML, 1ML SQ SCH (08:30)
[2018-08-30 08:50] LABS: TROPONIN I 0.552 ng/mL (0.000-0.045)
[2018-08-30 09:00] VITALS: BP 139/74
[2018-08-30] MEDS: ASPIRIN 81 MG TABLET EC PO SCH (09:00)
[2018-08-30] MEDS ORDERED: METOPROLOL TARTRATE 25 MG TABLET PO SCH (09:00)
[2018-08-30] MEDS: FUROSEMIDE 20 MG/2 ML IV SCH ×2 (09:00→21:16)
[2018-08-30] MEDS: LISINOPRIL 5 MG TABLET PO SCH (13:00)
[2018-08-30 14:00] VITALS: BP 108/68
[2018-08-30] MEDS ORDERED: ALBUTEROL SULFATE 2.5 MG/3 ML NPPB PRN (14:30)
[2018-08-30] MEDS ORDERED: HEPARIN 5,000 UNITS/ML, 1ML IV ONE (17:30)
[2018-08-30] MEDS ORDERED: HEPARIN 25,000 UNITS/500ML PMX 500 ML IV PRN (17:30)
[2018-08-30] MEDS ORDERED: HEPARIN 5,000 UNITS/ML, 1ML IV PRN (17:30)
[2018-08-30] MEDS: CARVEDILOL 6.25 MG TABLET PO SCH (17:45)
[2018-08-30] MEDS ORDERED: ATORVASTATIN 10 MG TABLET PO SCH (21:00)
[2018-08-30 21:50] VITALS: BP 107/68
[2018-08-31 00:25] VITALS: BP 105/68
[2018-08-31 04:48] LABS: BASOPHILS # (AUTO) 0.05 x10^3/uL (0-0.1); BASOPHILS % (AUTO) 1 % (0-1); EOSINOPHILS # (AUTO) 0.72 x10^3/uL (0-0.4); EOSINOPHILS % (AUTO) 10 % (1-7); LYMPHOCYTES # (AUTO) 1.97 x10^3/uL (1-3.4); LYMPHOCYTES % (AUTO) 28 % (22-44); MD NO; MEAN CORPUSCULAR HEMOGLOBIN 30.2 pg (27.5-34.5); MEAN CORPUSCULAR HGB CONC 32.9 g/dL (33.2-36.2); MEAN CORPUSCULAR VOLUME 91.7 fL (81-97); MEAN PLATELET VOLUME 8.4 fL (7.4-10.4); MONOCYTES # (AUTO) 0.69 x10^3/uL (0.2-0.8); MONOCYTES % (AUTO) 10 % (2-9); NEUTROPHILS # (AUTO) 3.59 x10^3/uL (1.8-6.8); NEUTROPHILS % (AUTO) 51 % (42-75); PLATELET COUNT 145 x10^3/uL (130-400); RED BLOOD COUNT 4.84 x10^6/uL (4.38-5.82); RED CELL DISTRIBUTION WIDTH 15.6 % (9.4-14.8)
[2018-08-31 04:58] LABS: ALBUMIN 3.4 g/dL (3.4-5.0); ANION GAP 5 mmol/L (5-15); CALCIUM 8.8 mg/dL (8.5-10.1); CHLORIDE 107 mmol/L (98-107)
[2018-08-31 05:01] LABS: CREATININE 0.95 mg/dL (0.7-1.3)
[2018-08-31 05:02] LABS: ALANINE AMINOTRANSFERASE 28 U/L (12-78); ALKALINE PHOSPHATASE 102 U/L (45-117); TOTAL PROTEIN 6.3 g/dL (6.4-8.2)
[2018-08-31] MEDS: CARVEDILOL 6.25 MG TABLET PO SCH ×2 (05:53→18:24)
[2018-08-31 06:45] VITALS: BP 112/66
[2018-08-31] MEDS: FUROSEMIDE 20 MG/2 ML IV SCH (08:10)
[2018-08-31] MEDS: ASPIRIN 81 MG TABLET EC PO SCH (08:10)
[2018-08-31] MEDS: LISINOPRIL 5 MG TABLET PO SCH (08:10)
[2018-08-31] MEDS ORDERED: FENTANYL PF 100 MCG/2ML ONE (12:09)
[2018-08-31] MEDS ORDERED: TICAGRELOR 90 MG TABLET ONE (12:10)
[2018-08-31] MEDS ORDERED: MIDAZOLAM 1 MG/ML, 2ML ONE ×2 (12:10→13:28)
[2018-08-31] MEDS ORDERED: VERAPAMIL 2.5 MG/ML, 2ML ONE (12:10)
[2018-08-31] MEDS ORDERED: HEPARIN 1,000 UNITS/ML, 10ML ONE (12:10)
[2018-08-31] MEDS ORDERED: BIVALIRUDIN 250 MG ONE ×2 (12:10→13:32)
[2018-08-31 14:00] VITALS: BP 106/73
[2018-08-31 14:26] VITALS: BP 106/73
[2018-08-31] MEDS: TICAGRELOR 90 MG TABLET PO SCH (20:19)
[2018-08-31 20:53] VITALS: BP 105/72
[2018-08-31] MEDS ORDERED: ATORVASTATIN 40 MG TABLET PO SCH (21:00)
[2018-09-01 02:07] VITALS: BP 126/74
[2018-09-01 05:27] LABS: ANION GAP 8 mmol/L (5-15); CALCIUM 9.3 mg/dL (8.5-10.1); CHLORIDE 105 mmol/L (98-107); CREATININE 0.94 mg/dL (0.7-1.3)
[2018-09-01] MEDS: CARVEDILOL 6.25 MG TABLET PO SCH (05:40)
[2018-09-01 05:42] VITALS: BP 105/71
[2018-09-01 07:31] VITALS: BP 103/72
[2018-09-01] MEDS: ASPIRIN 81 MG TABLET EC PO SCH (09:00)
[2018-09-01] MEDS ORDERED: ASPIRIN 81 MG TABLET EC PO SCH (09:00)
[2018-09-01] MEDS ORDERED: FUROSEMIDE 40 MG TABLET PO SCH (09:00)
[2018-09-01] MEDS: TICAGRELOR 90 MG TABLET PO SCH (09:00)
[2018-09-01] MEDS: LISINOPRIL 5 MG TABLET PO SCH (09:00)
[2018-09-01] MEDS ORDERED: POTASSIUM CHLORIDE 20 MEQ TAB.ER.PRT PO SCH (10:30)
[2018-09-01] MEDS ORDERED: SPIRONOLACTONE 25 MG TABLET PO SCH (11:00)
[2018-09-01] MEDS ORDERED: SPIR25TA PO (11:37)
[2018-09-01] MEDS ORDERED: TICA90TA PO (11:37)
[2018-09-01] MEDS ORDERED: ATOR40TA78 PO (11:37)
[2018-09-01] MEDS ORDERED: FURO40TA6 PO (11:37)
[2018-09-01] MEDS ORDERED: CARV6.2512 PO (11:37)
[2018-09-01] MEDS ORDERED: LISI5TAB7 PO (11:37)
== END 2018-09-01 14:26 | disposition home or self-care (01) | DRG 250 ==
LOC: ED 06:36 → EDIP 07:25 → 5SO 08:38
PROVIDERS: ADMIT Hospitalist; ATTEND Hospitalist
PROC: 4A023N7 Measurement of Cardiac Sampling and Pressure, Left Heart, Percutaneous Approach (ICD-10-PCS; principal; 2018-08-31)
PROC: 02703ZZ Dilation of Coronary Artery, One Artery, Percutaneous Approach (ICD-10-PCS; 2018-08-31)
PROC: B2111ZZ Fluoroscopy of Multiple Coronary Arteries using Low Osmolar Contrast (ICD-10-PCS; 2018-08-31)
PROC: B2151ZZ Fluoroscopy of Left Heart using Low Osmolar Contrast (ICD-10-PCS; 2018-08-31)
DX: I21.4 Non-ST elevation (NSTEMI) myocardial infarction (principal); I50.43 Acute on chronic combined systolic (congestive) and diastolic (congestive) heart failure; I42.9 Cardiomyopathy, unspecified; I25.110 Atherosclerotic heart disease of native coronary artery with unstable angina pectoris; G62.0 Drug-induced polyneuropathy; I11.0 Hypertensive heart disease with heart failure; J45.909 Unspecified asthma, uncomplicated; N40.0 Benign prostatic hyperplasia without lower urinary tract symptoms; I77.1 Stricture of artery; T45.1X5A Adverse effect of antineoplastic and immunosuppressive drugs, initial encounter; Y92.89 Other specified places as the place of occurrence of the external cause; Z87.891 Personal history of nicotine dependence; Z85.72 Personal history of non-Hodgkin lymphomas; Z95.810 Presence of automatic (implantable) cardiac defibrillator; Z95.2 Presence of prosthetic heart valve
CPT/HCPCS: 36415; 71045; 80048; 80053; 83735; 83880; 84100; 84443; 84484; 85014; 85018; 85025; 85520; 92920; 93005; 93458; 96374; 99156; 99157; C1769; C1894; C8929; G0378; J0583; J1644; J1940; J2250; J3010; Q9957; 92928; C1725; C1887; Q9967

== ENCOUNTER 2019-01-31 09:12 | Day surgery (SDC) | payer MEDICARE ==
[~2019-01-31] VITALS: Ht 193 cm; Wt 104.5 kg
[~2019-01-31 09:12] MED LIST changes: -ASPI-621 PO; +ASPI81TA45 PO; +ATOR40TA78 PO; +CARV6.2512 PO; +LISI5TAB7 PO; +METO25TA35 PO; +SPIR25TA PO; +TICA90TA PO; +albuterol nebulizer IH
[2019-01-31 09:41] VITALS: BP 126/84
[2019-01-31] MEDS ORDERED: SODIUM CHLORIDE 0.9% 1,000 ML IV ONE (10:00)
[2019-01-31] MEDS ORDERED: FURO20TA3 PO (10:00)
[2019-01-31] MEDS ORDERED: SPIR25TA5 PO (10:00)
[2019-01-31] MEDS ORDERED: SACU1TAB PO (10:00)
[2019-01-31] MEDS ORDERED: PROPOFOL 10 MG/ML, 50ML ONE (11:36)
== END 2019-01-31 14:26 | disposition home or self-care (01) ==
LOC: CACL 09:12
PROVIDERS: ATTEND Internal Medicine Cardiovascular Disease
DX: I34.0 Nonrheumatic mitral (valve) insufficiency (principal); E78.5 Hyperlipidemia, unspecified; I42.9 Cardiomyopathy, unspecified; G60.9 Hereditary and idiopathic neuropathy, unspecified; I25.10 Atherosclerotic heart disease of native coronary artery without angina pectoris; I10 Essential (primary) hypertension; Z79.82 Long term (current) use of aspirin; Z95.810 Presence of automatic (implantable) cardiac defibrillator
CPT/HCPCS: 93312; 93321; 93325; J2704

== ENCOUNTER 2019-10-11 08:01 | Observation (INO) | payer MEDICARE ==
[~2019-10-11] VITALS: Ht 193 cm; Wt 101.8 kg
[~2019-10-11 08:01] MED LIST changes: +FURO20TA3 PO; +SACU1TAB PO; +SPIR25TA5 PO
[2019-10-11] MEDS ORDERED: methylPREDNISolone SOD SUCC 125 MG/2 ML ONE (08:44)
[2019-10-11] MEDS ORDERED: ALBUTEROL/IPRATROPIUM 2.5MG/0.5MG, 3 ML ONE (08:50)
[2019-10-11] MEDS ORDERED: ALBUTEROL/IPRATROPIUM 2.5MG/0.5MG, 3 ML NPPB ONE (09:00)
[2019-10-11] MEDS ORDERED: SODIUM CHLORIDE FLUSH 10ML SYR IVF ONE (09:00)
[2019-10-11] MEDS ORDERED: methylPREDNISolone SOD SUCC 125 MG/2 ML IVPush ONE (09:00)
[2019-10-11 09:15] LABS: ALBUMIN 3.6 g/dL (3.4-5.0); ANION GAP 7 mmol/L (5-15); CALCIUM 8.5 mg/dL (8.5-10.1); CHLORIDE 109 mmol/L (98-107); CREATININE 0.99 mg/dL (0.7-1.3)
[2019-10-11 09:19] LABS: TROPONIN I 0.097 ng/mL (0.000-0.045)
[2019-10-11 09:25] LABS: BASOPHILS % (AUTO) 2 % (0-1); EOSINOPHILS % (AUTO) 18 % (1-7); LYMPHOCYTES # (AUTO) 1.56 x10^3/uL (1-3.4); LYMPHOCYTES % (AUTO) 23 % (22-44); MD NO; MEAN CORPUSCULAR HEMOGLOBIN 33.7 pg (27.5-34.5); MEAN CORPUSCULAR HGB CONC 33.8 g/dL (33.2-36.2); MEAN CORPUSCULAR VOLUME 99.8 fL (81-97); MEAN PLATELET VOLUME 7.9 fL (7.4-10.4); MONOCYTES # (AUTO) 0.65 x10^3/uL (0.2-0.8); MONOCYTES % (AUTO) 10 % (2-9); NEUTROPHILS # (AUTO) 3.18 x10^3/uL (1.8-6.8); NEUTROPHILS % (AUTO) 48 % (42-75); PLATELET COUNT 146 x10^3/uL (130-400); RED BLOOD COUNT 4.91 x10^6/uL (4.38-5.82); RED CELL DISTRIBUTION WIDTH 14.3 % (9.4-14.8)
--- NOTE | 2019-10-11 11:47 | NUR ---
LAB CALLED ABOUT REPEAT TROPONIN ORDERED AT 11AM, THEY STATED THEY WILL SEND SOMEONE. PT RESTING IN [facility], AWAITING LAB RESULTS
[2019-10-11 12:23] LABS: TROPONIN I 0.105 ng/mL (0.000-0.045)
[2019-10-11] MEDS ORDERED: CEFTRIAXONE PMX 1GM/50ML 50 ML ONE (12:53)
[2019-10-11] MEDS ORDERED: AZITHROMYCIN 500 MG in SODIUM CHLORIDE 0.9% 250 ML IVPB ONE (13:00)
[2019-10-11] MEDS ORDERED: CEFTRIAXONE PMX 1GM/50ML 50 ML IVPB ONE (13:00)
--- NOTE | 2019-10-11 13:04 | NUR ---
PER NO NEED FOR BLOOD CULTURES BEFORE IV ANTIBIOTICS
--- NOTE | 2019-10-11 14:02 | NUR ---
PT TO BE ADMITTED. AWAITNG BED ASSIGNMENT.
[2019-10-11] MEDS ORDERED: ONDANSETRON ODT 4 MG PO PRN (14:30)
[2019-10-11] MEDS ORDERED: ACETAMINOPHEN 325 MG TABLET PO PRN (14:30)
[2019-10-11] MEDS ORDERED: ONDANSETRON 2MG/ML, 2ML IVPush PRN (14:30)
[2019-10-11] MEDS: ENOXAPARIN 40 MG/0.4 ML SQ SCH (14:30)
[2019-10-11] MEDS ORDERED: CEFTRIAXONE PMX 1GM/50ML 50 ML IV SCH (14:30)
--- NOTE | 2019-10-11 14:38 | NUR ---
TASK RN: PT RESTING ON GURNEY. NADN. CORTES.
--- NOTE | 2019-10-11 15:34 | NUR ---
pt requested rn call and update son Boris [phone]
[2019-10-11 17:27] VITALS: BP 122/73
[2019-10-11 18:25] LABS: TROPONIN I 0.107 ng/mL (0.000-0.045)
[2019-10-11 19:28] VITALS: BP 129/81
[2019-10-11] MEDS: FUROSEMIDE 40 MG/4 ML IV SCH (19:29)
[2019-10-11] MEDS: CARVEDILOL 6.25 MG TABLET PO SCH (19:30)
[2019-10-11] MEDS ORDERED: ATORVASTATIN 40 MG TABLET PO SCH (21:00)
[2019-10-11] MEDS: ALBUTEROL SULFATE 2.5 MG/3 ML NPPB PRN (21:29)
[2019-10-11] MEDS: SACUBITRIL/VALSARTAN 24MG-26MG TAB PO SCH (21:35)
[2019-10-11 22:58] LABS: RAPID INFLUENZA A Negative (Negative); RAPID INFLUENZA B Negative (Negative)
[2019-10-12 00:53] LABS: TROPONIN I 0.095 ng/mL (0.000-0.045)
[2019-10-12 02:18] VITALS: BP 106/67
[2019-10-12 04:49] LABS: BASOPHILS # (AUTO) 0.02 x10^3/uL (0-0.1); BASOPHILS % (AUTO) 0 % (0-1); EOSINOPHILS % (AUTO) 0 % (1-7); LYMPHOCYTES # (AUTO) 1.21 x10^3/uL (1-3.4); LYMPHOCYTES % (AUTO) 9 % (22-44); MD NO; MEAN CORPUSCULAR HEMOGLOBIN 33.3 pg (27.5-34.5); MEAN CORPUSCULAR HGB CONC 32.5 g/dL (33.2-36.2); MEAN CORPUSCULAR VOLUME 102.5 fL (81-97); MEAN PLATELET VOLUME 7.9 fL (7.4-10.4); MONOCYTES # (AUTO) 0.64 x10^3/uL (0.2-0.8); MONOCYTES % (AUTO) 5 % (2-9); NEUTROPHILS # (AUTO) 11.24 x10^3/uL (1.8-6.8); NEUTROPHILS % (AUTO) 86 % (42-75); PLATELET COUNT 146 x10^3/uL (130-400); RED BLOOD COUNT 4.87 x10^6/uL (4.38-5.82); RED CELL DISTRIBUTION WIDTH 14.4 % (9.4-14.8)
[2019-10-12 04:59] LABS: ANION GAP 6 mmol/L (5-15); CALCIUM 8.8 mg/dL (8.5-10.1); CHLORIDE 104 mmol/L (98-107); CREATININE 1.14 mg/dL (0.7-1.3)
[2019-10-12] MEDS: CARVEDILOL 6.25 MG TABLET PO SCH (06:22)
[2019-10-12 06:49] VITALS: BP 112/75
[2019-10-12] MEDS: ALBUTEROL SULFATE 2.5 MG/3 ML NPPB PRN (08:20)
[2019-10-12] MEDS ORDERED: AZITHROMYCIN 500 MG TABLET PO SCH (09:00)
[2019-10-12] MEDS ORDERED: ASPIRIN 81 MG TABLET EC PO SCH (09:00)
[2019-10-12] MEDS: FUROSEMIDE 40 MG/4 ML IV SCH (10:00)
[2019-10-12] MEDS: SACUBITRIL/VALSARTAN 24MG-26MG TAB PO SCH (10:03)
[2019-10-12 12:16] VITALS: BP 107/73
[2019-10-12] MEDS ORDERED: PRED20TA PO (14:37)
[2019-10-12] MEDS ORDERED: AZIT500T10 PO (14:37)
[2019-10-12] MEDS: ENOXAPARIN 40 MG/0.4 ML SQ SCH (15:00)
== END 2019-10-12 16:15 | disposition home or self-care (01) ==
LOC: ED 10:56 → SUATTDRO 12:55 → INTOOBSV 14:30 → EDIP 14:30 → 4EST 17:10 → DCLOUNGE 10-12 16:07
PROVIDERS: ADMIT Internal Medicine; ATTEND Family Medicine
DX: R06.00 Dyspnea, unspecified (principal); J44.1 Chronic obstructive pulmonary disease with (acute) exacerbation; R79.89 Other specified abnormal findings of blood chemistry; I25.10 Atherosclerotic heart disease of native coronary artery without angina pectoris; I11.0 Hypertensive heart disease with heart failure; I50.42 Chronic combined systolic (congestive) and diastolic (congestive) heart failure; E78.5 Hyperlipidemia, unspecified; J18.9 Pneumonia, unspecified organism; I21.9 Acute myocardial infarction, unspecified; Z95.810 Presence of automatic (implantable) cardiac defibrillator; Z79.899 Other long term (current) drug therapy
CPT/HCPCS: 36415; 71045; 80048; 82040; 83880; 84145; 84484; 85025; 87400; 93005; 93306; 94640; 96365; 96366; 96367; 96375; 96376; 99285; G0378; J0456; J0696; J1940; J2930; J7050; J7512; J7613; J7620; G0008

== ENCOUNTER 2020-01-31 05:39 | Observation (INO) | payer MEDICARE ==
[~2020-01-31] VITALS: Ht 195.6 cm; Wt 119.1 kg
[~2020-01-31 05:39] MED LIST changes: +ALBU18HF INH; +ALBU90AE2 INH; +AZIT500T10 PO; +BUDE10.2 INH; +MONT10TA11 PO; +PRED20TA PO; +TIOT18CA INH; +UMEC1DIS IH
--- NOTE | 2020-01-31 06:10 | NUR ---
Patient presents to ER c/o SOB since last night. Patient attempted a neb albuterol tx this morning at 3 which helped however he was SOB again with wheezing by 4. Patient is speaking in [id number] word sentences and working to breathe. Patient has a resp hx of COPD and a hx of an CT. Patient is not on O2 at home.
[2020-01-31] MEDS ORDERED: ALBUTEROL/IPRATROPIUM 2.5MG/0.5MG, 3 ML ONE (06:24)
[2020-01-31] MEDS ORDERED: methylPREDNISolone SOD SUCC 125 MG/2 ML ONE (06:24)
[2020-01-31] MEDS ORDERED: ALBUTEROL/IPRATROPIUM 2.5MG/0.5MG, 3 ML NPPB ONE (06:30)
[2020-01-31] MEDS ORDERED: methylPREDNISolone SOD SUCC 125 MG/2 ML IV ONE (06:30)
[2020-01-31] MEDS ORDERED: SODIUM CHLORIDE FLUSH 10ML SYR IVF ONE (06:30)
[2020-01-31 06:33] LABS: BASOPHILS # (AUTO) 0.04 x10^3/uL (0-0.1); BASOPHILS % (AUTO) 1 % (0-1); EOSINOPHILS # (AUTO) 0.81 x10^3/uL (0-0.4); EOSINOPHILS % (AUTO) 9 % (1-7); LYMPHOCYTES # (AUTO) 1.31 x10^3/uL (1-3.4); LYMPHOCYTES % (AUTO) 14 % (22-44); MD NO; MEAN CORPUSCULAR HEMOGLOBIN 33.4 pg (27.5-34.5); MEAN CORPUSCULAR HGB CONC 33.7 g/dL (33.2-36.2); MEAN CORPUSCULAR VOLUME 99.2 fL (81-97); MEAN PLATELET VOLUME 7.9 fL (7.4-10.4); MONOCYTES # (AUTO) 0.73 x10^3/uL (0.2-0.8); MONOCYTES % (AUTO) 8 % (2-9); NEUTROPHILS % (AUTO) 70 % (42-75); PLATELET COUNT 153 x10^3/uL (130-400); RED BLOOD COUNT 5.31 x10^6/uL (4.38-5.82); RED CELL DISTRIBUTION WIDTH 14.6 % (9.4-14.8)
[2020-01-31 06:41] LABS: ALANINE AMINOTRANSFERASE 27 U/L (12-78); ALBUMIN 3.9 g/dL (3.4-5.0); ANION GAP 6 mmol/L (5-15); CALCIUM 9.3 mg/dL (8.5-10.1); CHLORIDE 108 mmol/L (98-107); CREATININE 1.03 mg/dL (0.7-1.3)
[2020-01-31 06:45] LABS: ALKALINE PHOSPHATASE 164 U/L (45-117); BILIRUBIN,TOTAL 0.6 mg/dL (0.2-1.0); TOTAL PROTEIN 7.3 g/dL (6.4-8.2)
--- NOTE | 2020-01-31 07:22 | NUR ---
ER PROVIDER IN TO UPDATE PT AT THIS TIME, PT TO BE ADMITTED
[2020-01-31] MEDS ORDERED: ONDANSETRON ODT 4 MG PO PRN (08:30)
[2020-01-31] MEDS ORDERED: ALBUTEROL SULFATE 2.5 MG/3 ML NEB PRN (08:30)
[2020-01-31] MEDS ORDERED: ONDANSETRON 2MG/ML, 2ML IVPush PRN (08:30)
[2020-01-31] MEDS ORDERED: SENNA/DOCUSATE TABLET PO PRN (08:30)
[2020-01-31] MEDS ORDERED: TEMPLATE NON-FORMULARY MED. (Albuterol Sulfate (Ventolin Hfa) 18 GM) INH PRN (08:30)
[2020-01-31] MEDS ORDERED: ACETAMINOPHEN 325 MG TABLET PO PRN (08:30)
[2020-01-31] MEDS ORDERED: TEMPLATE NON-FORMULARY MED. (Umeclidinium Brm/Vilanterol Tr (Anoro Ellipta 62.5-25 Mcg Inh IH SCH (09:00)
[2020-01-31] MEDS ORDERED: TEMPLATE NON-FORMULARY MED. (Budesonide/Formoterol Fumarate (Symbicort 160-4.5 Mcg Inhaler INH SCH (09:00)
[2020-01-31 09:05] LABS: TROPONIN I 0.113 ng/mL (0.000-0.045)
--- NOTE | 2020-01-31 09:05 | NUR ---
ATTEMPTED TO CALL REPORT, RN TO CALL BACK
--- NOTE | 2020-01-31 09:25 | NUR ---
ATTEMPTED AGAIN TO CALL REPORT, RN NOT AVAILABLE PER [facility]. UNABLE TO GIVE REPORT TO CHARGE PER [facility]
[2020-01-31] MEDS: FLUTICASONE/VILANTEROL 100-25MCG/INH INH SCH ×2 (10:20→10:50)
[2020-01-31] MEDS: ASPIRIN 81 MG TABLET EC PO SCH (10:49)
[2020-01-31] MEDS: FUROSEMIDE 20 MG TABLET PO SCH (10:49)
[2020-01-31] MEDS: SACUBITRIL/VALSARTAN 24MG-26MG TAB PO SCH ×2 (10:49→20:23)
[2020-01-31] MEDS: ALBUTEROL HFA 90 MCG/SPRAY INH PRN ×2 (10:50→16:55)
[2020-01-31] MEDS: HEPARIN 5,000 UNITS/ML, 1ML SQ SCH ×2 (10:50→20:24)
--- NOTE | 2020-01-31 11:33 | NUR ---
late entry: pt was transported by [facility] tech
[2020-01-31 12:14] VITALS: BP 134/93
[2020-01-31 15:05] LABS: TROPONIN I 0.113 ng/mL (0.000-0.045)
[2020-01-31] MEDS: CARVEDILOL 6.25 MG TABLET PO SCH (16:55)
[2020-01-31] MEDS: MONTELUKAST 10 MG TABLET PO SCH (20:23)
[2020-01-31] MEDS: ATORVASTATIN 40 MG TABLET PO SCH (20:23)
[2020-01-31] MEDS: (Budesonide/Formoterol Fumarate (Symbicort 160-4.5 Mcg Inhaler INH SCH (20:24)
[2020-01-31 20:30] VITALS: BP 149/84
[2020-02-01 01:00] VITALS: BP 110/73
[2020-02-01 02:00] VITALS: BP 145/78
[2020-02-01] MEDS: CARVEDILOL 6.25 MG TABLET PO SCH ×2 (04:29→17:02)
[2020-02-01] MEDS: HEPARIN 5,000 UNITS/ML, 1ML SQ SCH ×3 (04:29→20:12)
[2020-02-01 05:42] LABS: BASOPHILS # (AUTO) 0.01 x10^3/uL (0-0.1); BASOPHILS % (AUTO) 0 % (0-1); EOSINOPHILS # (AUTO) 0.01 x10^3/uL (0-0.4); EOSINOPHILS % (AUTO) 0 % (1-7); LYMPHOCYTES # (AUTO) 1.23 x10^3/uL (1-3.4); LYMPHOCYTES % (AUTO) 9 % (22-44); MD NO; MEAN CORPUSCULAR HEMOGLOBIN 32.4 pg (27.5-34.5); MEAN CORPUSCULAR HGB CONC 32.9 g/dL (33.2-36.2); MEAN CORPUSCULAR VOLUME 98.4 fL (81-97); MEAN PLATELET VOLUME 8.4 fL (7.4-10.4); MONOCYTES # (AUTO) 0.59 x10^3/uL (0.2-0.8); MONOCYTES % (AUTO) 4 % (2-9); NEUTROPHILS # (AUTO) 12.73 x10^3/uL (1.8-6.8); NEUTROPHILS % (AUTO) 87 % (42-75); PLATELET COUNT 146 x10^3/uL (130-400); RED BLOOD COUNT 5.33 x10^6/uL (4.38-5.82); RED CELL DISTRIBUTION WIDTH 14.3 % (9.4-14.8)
[2020-02-01 05:44] LABS: CHLORIDE 108 mmol/L (98-107)
[2020-02-01 06:08] LABS: ANION GAP 9 mmol/L (5-15); C-REACTIVE PROTEIN, QUANT 0.88 mg/dL (0.02-0.49); CALCIUM 9.6 mg/dL (8.5-10.1); CREATININE 0.88 mg/dL (0.7-1.3)
[2020-02-01 07:36] VITALS: BP 114/67
[2020-02-01] MEDS: ALBUTEROL HFA 90 MCG/SPRAY INH PRN (08:03)
[2020-02-01] MEDS: SACUBITRIL/VALSARTAN 24MG-26MG TAB PO SCH ×2 (08:03→20:11)
[2020-02-01] MEDS: FUROSEMIDE 20 MG TABLET PO SCH (08:03)
[2020-02-01] MEDS: ASPIRIN 81 MG TABLET EC PO SCH (08:03)
[2020-02-01] MEDS: (Budesonide/Formoterol Fumarate (Symbicort 160-4.5 Mcg Inhaler INH SCH ×2 (12:00→20:12)
[2020-02-01 12:09] VITALS: BP 128/80
[2020-02-01 19:32] VITALS: BP 118/72
[2020-02-01] MEDS: MONTELUKAST 10 MG TABLET PO SCH (20:12)
[2020-02-01] MEDS: ATORVASTATIN 40 MG TABLET PO SCH (20:12)
[2020-02-02] MEDS: HEPARIN 5,000 UNITS/ML, 1ML SQ SCH ×2 (03:20→12:11)
[2020-02-02 03:25] VITALS: BP 127/83
[2020-02-02] MEDS: CARVEDILOL 6.25 MG TABLET PO SCH (05:55)
[2020-02-02 05:59] LABS: BASOPHILS # (AUTO) 0.03 x10^3/uL (0-0.1); BASOPHILS % (AUTO) 0 % (0-1); EOSINOPHILS # (AUTO) 0.19 x10^3/uL (0-0.4); EOSINOPHILS % (AUTO) 2 % (1-7); LYMPHOCYTES # (AUTO) 2.39 x10^3/uL (1-3.4); LYMPHOCYTES % (AUTO) 27 % (22-44); MD NO; MEAN CORPUSCULAR HEMOGLOBIN 32.9 pg (27.5-34.5); MEAN CORPUSCULAR VOLUME 99.6 fL (81-97); MEAN PLATELET VOLUME 7.8 fL (7.4-10.4); MONOCYTES # (AUTO) 0.75 x10^3/uL (0.2-0.8); MONOCYTES % (AUTO) 9 % (2-9); NEUTROPHILS # (AUTO) 5.52 x10^3/uL (1.8-6.8); NEUTROPHILS % (AUTO) 62 % (42-75); PLATELET COUNT 146 x10^3/uL (130-400); RED BLOOD COUNT 4.97 x10^6/uL (4.38-5.82); RED CELL DISTRIBUTION WIDTH 14.4 % (9.4-14.8)
[2020-02-02 06:12] LABS: ALBUMIN 3.1 g/dL (3.4-5.0); ANION GAP 6 mmol/L (5-15); CALCIUM 8.7 mg/dL (8.5-10.1); CHLORIDE 106 mmol/L (98-107)
[2020-02-02 06:19] LABS: CREATININE 0.92 mg/dL (0.7-1.3)
[2020-02-02 06:20] LABS: ALANINE AMINOTRANSFERASE 22 U/L (12-78); ALKALINE PHOSPHATASE 128 U/L (45-117); BILIRUBIN,TOTAL 0.6 mg/dL (0.2-1.0); C-REACTIVE PROTEIN, QUANT 0.32 mg/dL (0.02-0.49); TOTAL PROTEIN 6.1 g/dL (6.4-8.2)
[2020-02-02] MEDS: ALBUTEROL HFA 90 MCG/SPRAY INH PRN (06:42)
[2020-02-02 07:10] VITALS: BP 124/75
[2020-02-02] MEDS: ASPIRIN 81 MG TABLET EC PO SCH (08:15)
[2020-02-02] MEDS: SACUBITRIL/VALSARTAN 24MG-26MG TAB PO SCH (08:15)
[2020-02-02] MEDS: FUROSEMIDE 20 MG TABLET PO SCH (08:15)
[2020-02-02] MEDS: (Budesonide/Formoterol Fumarate (Symbicort 160-4.5 Mcg Inhaler INH SCH (08:15)
[2020-03-09] MEDS ORDERED: PRED20TA PO (11:35)
[2020-03-09] MEDS ORDERED: DOXY100C15 PO (11:35)
== END 2020-02-02 13:28 | disposition home or self-care (01) ==
LOC: ED 05:55 → EDIP 07:23 → INTOOBSV 07:23 → 3WST 09:47 → 5SO 02-02 10:16
PROVIDERS: ADMIT Internal Medicine; ATTEND Family Medicine
DX: Z03.818 Encounter for observation for suspected exposure to other biological agents ruled out (principal); J44.1 Chronic obstructive pulmonary disease with (acute) exacerbation; I49.9 Cardiac arrhythmia, unspecified; I42.9 Cardiomyopathy, unspecified; I50.42 Chronic combined systolic (congestive) and diastolic (congestive) heart failure; I47.2 Ventricular tachycardia; E78.5 Hyperlipidemia, unspecified; F12.90 Cannabis use, unspecified, uncomplicated; G62.9 Polyneuropathy, unspecified; I11.0 Hypertensive heart disease with heart failure; I25.2 Old myocardial infarction; I25.10 Atherosclerotic heart disease of native coronary artery without angina pectoris; R79.89 Other specified abnormal findings of blood chemistry; Z85.72 Personal history of non-Hodgkin lymphomas; Z95.5 Presence of coronary angioplasty implant and graft; Z95.810 Presence of automatic (implantable) cardiac defibrillator; Z79.899 Other long term (current) drug therapy
CPT/HCPCS: 36415; 71045; 80048; 80053; 82728; 83615; 83880; 84145; 84484; 85025; 85379; 86140; 93005; 96372; 96374; 99285; G0378; J1644; J2930; J7512; U0001

== ENCOUNTER 2021-06-08 20:31 | Inpatient (IN) | payer MEDICARE ==
[~2021-06-08] VITALS: Ht 193 cm; Wt 112.4 kg
[~2021-06-08 20:31] MED LIST changes: -ASPI-515 PO; +ASPI-963 PO; +DOXY-246 PO; +HYDR-2214 PO; -HYDR-3240 PO; -MONT10TA11 PO; +MONT10TA17 PO; -WARF5TAB PO; +WARF5TAB2 PO
--- NOTE | 2021-06-08 20:42 | NUR ---
Jayleen mckeon in [facility] - 06/08/21 at 2045 by [email or web address] story editor: patient to room from lobby.
--- NOTE | 2021-06-08 20:51 | NUR ---
FIRST CONTACT: STEPH TOTH, EMT IN ROOM STARTING EKG. PATIENT STATES HE HAS BEEN HAVING DIFFICULTY BREATHING AT HOME, HAS HOME O2 BUT IT WAS NOT IMPROVING HIS BREATHING. PATIENT IS SPEAKING IN 3-4 WORD SENTENCES, DIAPHORETIC AND HAS INCREASED WOB, X-RAY OUTSIDE ROOM. PATIENT STATES HE WAS GIVEN A ANTIBIOTIC TODAY BY HIS PROVIDER.
[2021-06-08 21:08] LABS: BASOPHILS % (AUTO) 1 % (0-1); EOSINOPHILS % (AUTO) 0 % (1-7); LYMPHOCYTES % (AUTO) 15 % (22-44); MEAN CORPUSCULAR HEMOGLOBIN 33.8 pg (27.5-34.5); MEAN CORPUSCULAR HGB CONC 33.5 g/dL (33.2-36.2); MONOCYTES % (AUTO) 16 % (2-9); NEUTROPHILS % (AUTO) 68 % (42-75); PLATELET COUNT 125 x10^3/uL (130-400); RED BLOOD COUNT 4.96 x10^6/uL (4.38-5.82); RED CELL DISTRIBUTION WIDTH 13.8 % (9.4-14.8)
[2021-06-08 21:21] LABS: ALANINE AMINOTRANSFERASE 26 U/L (12-78); ALBUMIN 3.6 g/dL (3.4-5.0); ANION GAP 5 mmol/L (5-15); CALCIUM 9.3 mg/dL (8.5-10.1); CHLORIDE 103 mmol/L (98-107)
[2021-06-08 21:25] LABS: ALKALINE PHOSPHATASE 62 U/L (45-117); BILIRUBIN,TOTAL 0.4 mg/dL (0.2-1.0); TOTAL PROTEIN 7.5 g/dL (6.4-8.2)
[2021-06-08] MEDS ORDERED: ALBUTEROL/IPRATROPIUM 2.5MG/0.5MG, 3 ML NPPB ONE (21:30)
[2021-06-08] MEDS: PLEASE ENTER ALLERGIES MC SCH (21:30)
--- NOTE | 2021-06-08 21:50 | NUR ---
Patient is resting in bed. Bed in lowest, rails engaged, call light on lap. Patient continues to have SOB and increase work of breathing, and speaking in 3-4 word sentences. TM.
[2021-06-08] MEDS ORDERED: ALBUTEROL/IPRATROPIUM 2.5MG/0.5MG, 3 ML ONE ×2 (21:55→22:08)
--- NOTE | 2021-06-08 22:30 | NUR ---
RA SAT 92
[2021-06-08] MEDS ORDERED: FUROSEMIDE 20 MG/2 ML ONE (22:50)
--- NOTE | 2021-06-08 22:58 | NUR ---
Patient is resting comfortably in bed. Bed in lowest, rails engaged, call light on lap. MD at bedside. Patient in NAD at this time. RICHARD.
[2021-06-08] MEDS ORDERED: FUROSEMIDE 20 MG/2 ML IV ONE (23:00)
[2021-06-08] MEDS ORDERED: AZITHROMYCIN 500 MG TABLET PO ONE (23:00)
[2021-06-08] MEDS ORDERED: ACETAMINOPHEN 650 MG SUPP PR PRN (23:00)
--- NOTE | 2021-06-08 23:19 | NUR ---
patient up to restroom with a steady gait.
--- NOTE | 2021-06-08 23:47 | NUR ---
Patient is resting comfortably in bed. Bed in lowest, rails engaged, call light on lap. NAD at this time. RICHARD.
--- NOTE | 2021-06-09 00:27 | NUR ---
Pt to be admitted to [facility], room 510-2. Report called to DEZ LAL.
[2021-06-09 01:05] VITALS: BP 137/90
[2021-06-09] MEDS: PLEASE ENTER ALLERGIES MC SCH ×2 (01:37→13:30)
[2021-06-09] MEDS: ENOXAPARIN 40 MG/0.4 ML SQ SCH (01:45)
[2021-06-09] MEDS ORDERED: MELATONIN 5 MG TABLET PO PRN (03:00)
[2021-06-09] MEDS: ACETAMINOPHEN 325 MG TABLET PO PRN ×3 (04:18→20:20)
[2021-06-09 06:42] LABS: BASOPHILS % (AUTO) 0 % (0-1); EOSINOPHILS % (AUTO) 0 % (1-7); LYMPHOCYTES % (AUTO) 18 % (22-44); MEAN CORPUSCULAR HEMOGLOBIN 33.7 pg (27.5-34.5); MEAN CORPUSCULAR HGB CONC 33.2 g/dL (33.2-36.2); MEAN PLATELET VOLUME 7.9 fL (7.4-10.4); MONOCYTES % (AUTO) 6 % (2-9); NEUTROPHILS % (AUTO) 76 % (42-75); PLATELET COUNT 111 x10^3/uL (130-400); RED BLOOD COUNT 4.77 x10^6/uL (4.38-5.82); RED CELL DISTRIBUTION WIDTH 13.7 % (9.4-14.8)
[2021-06-09 06:52] LABS: ANION GAP 7 mmol/L (5-15); CALCIUM 9.4 mg/dL (8.5-10.1); CHLORIDE 101 mmol/L (98-107); CREATININE 0.93 mg/dL (0.7-1.3)
[2021-06-09 07:13] VITALS: BP 134/93
[2021-06-09] MEDS: BUDESONIDE 0.5 MG/2 ML INHA NPPB SCH ×2 (07:45→20:09)
[2021-06-09] MEDS: ALBUTEROL/IPRATROPIUM 2.5MG/0.5MG, 3 ML NPPB SCH ×3 (07:45→20:09)
[2021-06-09] MEDS: methylPREDNISolone SOD SUCC 125 MG/2 ML IVPush SCH ×3 (08:00→20:22)
[2021-06-09] MEDS: AZITHROMYCIN 500 MG TABLET PO SCH (08:22)
[2021-06-09 13:01] VITALS: BP 148/96
[2021-06-09] MEDS: SACUBITRIL/VALSARTAN 24MG-26MG TAB PO SCH ×2 (14:22→20:20)
[2021-06-09] MEDS: CARVEDILOL 6.25 MG TABLET PO SCH ×2 (14:22→18:00)
[2021-06-09] MEDS ORDERED: ALBUTEROL HFA 90 MCG/SPRAY INH PRN (14:30)
[2021-06-09 19:19] VITALS: BP 132/80
[2021-06-09] MEDS ORDERED: ATORVASTATIN 40 MG TABLET PO SCH (21:00)
[2021-06-10 01:58] VITALS: BP 154/99
[2021-06-10] MEDS: ENOXAPARIN 40 MG/0.4 ML SQ SCH (02:00)
[2021-06-10] MEDS: methylPREDNISolone SOD SUCC 125 MG/2 ML IVPush SCH (02:02)
[2021-06-10 05:49] LABS: BASOPHILS % (AUTO) 0 % (0-1); EOSINOPHILS % (AUTO) 0 % (1-7); LYMPHOCYTES % (AUTO) 10 % (22-44); MEAN CORPUSCULAR HEMOGLOBIN 33.7 pg (27.5-34.5); MEAN CORPUSCULAR HGB CONC 33.8 g/dL (33.2-36.2); MEAN PLATELET VOLUME 7.9 fL (7.4-10.4); MONOCYTES % (AUTO) 4 % (2-9); NEUTROPHILS % (AUTO) 86 % (42-75); PLATELET COUNT 124 x10^3/uL (130-400); RED BLOOD COUNT 4.93 x10^6/uL (4.38-5.82); RED CELL DISTRIBUTION WIDTH 13.4 % (9.4-14.8)
[2021-06-10 06:01] LABS: ALBUMIN 3.2 g/dL (3.4-5.0); ANION GAP 6 mmol/L (5-15); CALCIUM 9.1 mg/dL (8.5-10.1); CHLORIDE 100 mmol/L (98-107)
[2021-06-10 06:05] LABS: ALANINE AMINOTRANSFERASE 33 U/L (12-78); ALKALINE PHOSPHATASE 43 U/L (45-117); BILIRUBIN,TOTAL 0.6 mg/dL (0.2-1.0); CREATININE 0.81 mg/dL (0.7-1.3); TOTAL PROTEIN 6.9 g/dL (6.4-8.2)
[2021-06-10] MEDS: CARVEDILOL 6.25 MG TABLET PO SCH (06:22)
[2021-06-10 08:30] VITALS: BP 141/90
[2021-06-10] MEDS: SACUBITRIL/VALSARTAN 24MG-26MG TAB PO SCH (08:38)
[2021-06-10] MEDS: AZITHROMYCIN 500 MG TABLET PO SCH (08:38)
[2021-06-10] MEDS: BUDESONIDE 0.5 MG/2 ML INHA NPPB SCH (08:41)
[2021-06-10] MEDS: ALBUTEROL/IPRATROPIUM 2.5MG/0.5MG, 3 ML NPPB SCH (08:41)
[2021-06-10] MEDS ORDERED: PRED20TA PO (08:56)
[2021-06-10] MEDS ORDERED: AZIT500T10 PO (08:56)
[2021-06-10] MEDS ORDERED: ASPIRIN 81 MG TABLET EC PO SCH (09:00)
== END 2021-06-10 12:11 | disposition home or self-care (01) | DRG 189 ==
LOC: ED 21:34 → EDIP 22:51 → 5SO 06-09 01:05
PROVIDERS: ADMIT Internal Medicine; ATTEND Hospitalist
DX: J96.21 Acute and chronic respiratory failure with hypoxia (principal); I50.22 Chronic systolic (congestive) heart failure; I11.0 Hypertensive heart disease with heart failure; J43.9 Emphysema, unspecified; E66.01 Morbid (severe) obesity due to excess calories; I25.10 Atherosclerotic heart disease of native coronary artery without angina pectoris; G62.9 Polyneuropathy, unspecified; F19.10 Other psychoactive substance abuse, uncomplicated; E78.5 Hyperlipidemia, unspecified; I25.2 Old myocardial infarction; Z85.72 Personal history of non-Hodgkin lymphomas; Z68.30 Body mass index [BMI] 30.0-30.9, adult; Z95.810 Presence of automatic (implantable) cardiac defibrillator
CPT/HCPCS: 36415; 71045; 80048; 80053; 83880; 85025; 93005; 94640; 96374; G0378; J1650; J7626; J1940; J2930; J7512